=== PATIENT | male | born 1940 | race Caucasian/White ===

== ENCOUNTER 2018-07-30 07:46 | Day surgery (SDC) | payer MEDICARE ==
[~2018-07-30] VITALS: Ht 167.6 cm; Wt 87.1 kg
[~2018-07-30 07:46] MED LIST: ACETAMINOPHEN 325 MG TAB PO PRN; ATOR1TAB19 PO; BSS with VANC/TOB/EPI for EYE CASES IR ONE; CEFUROXIME 1MG/0.1ML INTRACAMERAL INJ As Ordered ONE; CYCLOPENTOLATE 2% OPHTH SOLN 2ML BTL OD ONE; HEALON DUET PRO(HEALON 10MG/ML 0.55ML & HEALON ENDOCOAT 30MG/ML 0.85ML) As Ordered ONE; LIDOCAINE 1% SDV 5 ML VIAL As Ordered ONE; LIDOCAINE 3.5 % 1ML OPHTH TOPICAL GEL OU ONE; MIDAZOLAM INJ 2 MG/2 ML VIAL (J2250) As Ordered ONE; OFLOXACIN 0.3 % (OCUFLOX) OPTH SOL 5ML OD ONE; OMEP20CA3 PO; PHENYLEPHRINE 2.5% OPHTH SOL 2ML OD ONE; PHENYLEPHRINE HCL 10 % OPHTH. SOL 5ML OD PRN; POVIDONE-IODINE 5% OPHTH PREP SOL 30ML As Ordered ONE; PROPARACAINE 0.5% OPHTH SOL 15ML OD PRN; TRIA2TA PO; TROPICAMIDE 1% OPHTH SOLN 2ML OD ONE; fentaNYL 100 MCG/2 ML INJECTION (J3010) As Ordered ONE
[2018-07-30] MEDS ORDERED: TRIMETHOBENZAMIDE 300 MG CAP PO PRN (10:15)
[2018-07-30] MEDS ORDERED: KETOROLAC 0.5% OPHTH SOLN OD ONE (10:15)
[2018-07-30] MEDS ORDERED: AcetaZOLAMIDE 500 MG ER CAP PO ONE (10:15)
[2018-07-30] MEDS ORDERED: HEALON DUET PRO(HEALON 10MG/ML 0.55ML & HEALON ENDOCOAT 30MG/ML 0.85ML) As Ordered ONE (10:27)
[2018-07-30 10:30] VITALS: BP 162/92
--- NOTE | 2018-07-30 15:33 | RO ---
DATE OF PROCEDURE: 07/30/2018 PREOPERATIVE DIAGNOSIS: Cataract right eye. POSTOPERATIVE DIAGNOSIS: Cataract right eye. PROCEDURE: PROCEDURE: Femtosecond laser and phacoemulsification of the intraocular lens with lens implantation along with endocyclophotocoagulation and placement of the I-Stent right eye. Intraocular lens power used was Model AU00T0, power 19.5 diopter. SURGEON: Ham Rollins MD APPAREL PATTERNMAKER: None. ANESTHESIA: Local IV standby. FINDINGS: Cataract of right eye. COMPLICATIONS: None. DESCRIPTION OF PROCEDURE: The patient was brought to the laser room and laid in supine position. After the adequate patient interface and intraocular pressure was reached, OCT images were reviewed and the laser was activated. Capsulorrhexis lens fragmentation primary secondary corneal incision along with arcuate corneal incision was done per plan. The patient was brought to the operating room and laid in supine position. The eye was prepped and draped in a sterile fashion for opthalmic surgery. A lid speculum was placed. Primary incision, secondary incision, and arcuate incisions were then opened per plan and EndoCoat was injected into the anterior chamber. Through the temporal clear corneal incision the capsulorrhexis was removed and after mild hydrodissection phacoemulsification was done in a divide and conquer method. After which the cortical material was aspirated using irrigation and aspiration cannula. Healon was then placed into the capsular bag followed by a check of the intraocular pressure. The pressure was adequate. Measurements were taken intraocular lens power AU00T0 19.5 diopter was chosen and placed in the capsular bag. Healon was then placed in the ciliary sulcus and endocyclophotocoagulation was done 280 degrees with the help of the EndoProbe as visualized on the video screen. Good results were noted by the shrinking of the ciliary processes. Additional viscoelastic was then placed in the anterior chamber. Patient's head was turned away from the surgeon and microscope towards the surgeon and with the hip of the goniolens under high magnification two I-Stents were placed. Nasally, supranasal and infranasal without any issues. Excess viscoelastic was then aspirated. Wound was hydrated and Intracameral moxifloxacin was given and lid speculum was removed, and patient was returned to the recovery room in stable condition.
== END 2018-07-30 10:35 | disposition home or self-care (01) ==
LOC: M SDC 07:46
PROVIDERS: ATTEND Ophthalmology
DX: H26.9 Unspecified cataract (principal); H40.9 Unspecified glaucoma; E78.2 Mixed hyperlipidemia; M17.10 Unilateral primary osteoarthritis, unspecified knee; R94.31 Abnormal electrocardiogram [ECG] [EKG]; K21.9 Gastro-esophageal reflux disease without esophagitis; F22 Delusional disorders; R35.1 Nocturia; Z79.899 Other long term (current) drug therapy
CPT/HCPCS: 66183; 66711; 66984; C1783; J2250; J3010; V2632

== ENCOUNTER 2018-08-05 09:06 | Day surgery (SDC) | payer MEDICARE ==
[~2018-08-05] VITALS: Ht 167.6 cm; Wt 85.3 kg
[~2018-08-05 09:06] MED LIST changes: -CYCLOPENTOLATE 2% OPHTH SOLN 2ML BTL OD ONE; +CYCLOPENTOLATE 2% OPHTH SOLN 2ML BTL OS ONE; -OFLOXACIN 0.3 % (OCUFLOX) OPTH SOL 5ML OD ONE; +OFLOXACIN 0.3 % (OCUFLOX) OPTH SOL 5ML OS ONE; -PHENYLEPHRINE 2.5% OPHTH SOL 2ML OD ONE; +PHENYLEPHRINE 2.5% OPHTH SOL 2ML OS ONE; -PHENYLEPHRINE HCL 10 % OPHTH. SOL 5ML OD PRN; +PHENYLEPHRINE HCL 10 % OPHTH. SOL 5ML OS PRN; -PROPARACAINE 0.5% OPHTH SOL 15ML OD PRN; +PROPARACAINE 0.5% OPHTH SOL 15ML OS PRN; -TROPICAMIDE 1% OPHTH SOLN 2ML OD ONE; +TROPICAMIDE 1% OPHTH SOLN 2ML OS ONE
[2018-08-05] MEDS ORDERED: HEALON DUET PRO(HEALON 10MG/ML 0.55ML & HEALON ENDOCOAT 30MG/ML 0.85ML) As Ordered ONE (11:34)
[2018-08-05] MEDS ORDERED: TRIMETHOBENZAMIDE 300 MG CAP PO PRN (13:00)
[2018-08-05] MEDS ORDERED: AcetaZOLAMIDE 500 MG ER CAP PO ONE (13:00)
[2018-08-05] MEDS ORDERED: KETOROLAC 0.5% OPHTH SOLN OS ONE (13:00)
[2018-08-05 13:20] VITALS: BP 170/93
--- NOTE | 2018-08-07 09:12 | RO ---
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 PROCEDURE: Femtosecond laser with phacoemulsification intraocular lens implantation of the help of Ora endocyclophotocoagulation and placement of the iStent. SURGEON: Ham Rollins MD TRUCK DISPATCHER: None. COMPLICATIONS: None. ANESTHESIA: Local IV standby. DESCRIPTION OF PROCEDURE: The patient was first brought to the laser room. After adequate patient interface and suction was obtained. OCT images were reviewed and the laser was activated. Capsulorrhexis lens fragmentation primary, secondary corneal and arcuate incisions were done per plan following which suction was released and patient was brought to the operating room. The eye was prepped and draped in a sterile fashion for opthalmic surgery and a lid speculum was placed. Primary and secondary coronal incision and arcuate incisions were opened per plan following which EndoCoat was injected into the anterior chamber. Through the temporal clear corneal incision, capsulorrhexis was removed and hydrodissection was done. Phacoemulsification was then done in a divide and conquer method within the capsular bag followed by aspiration of the cortical material. Healon was then placed in the capsule bag and the anterior chamber intraocular pressure was checked and was noted to be satisfactory. Multiple ora calculations were taken and intraocular lens of AU00T0 power 19.5 chosen. Following this, Healon was placed in the ciliary sulcus and ciliary processes were visualized on the video screen with the help of the EndoProbe. Endocyclophotocoagulation was done 280 degrees at 0.25 mV with good shrinking of the ciliary processes. Healon was then placed in the anterior chamber. Patient's head was turned away from the surgeon, microscope toward the surgeon under high magnification with the help of the Gonio lens, iStent was then placed nasally. Two iStents were placed in such a manner. Following this, excess viscoelastic was aspirated. Wound was hydrated, no leaks were noted. Intracameral moxifloxacin was given and patient was returned to the recovery room after removal of the lid speculum in stable condition.
== END 2018-08-05 13:40 | disposition home or self-care (01) ==
LOC: M SDC 09:06
PROVIDERS: ATTEND Ophthalmology
DX: H25.9 Unspecified age-related cataract (principal); H40.812 Glaucoma with increased episcleral venous pressure, left eye; E78.5 Hyperlipidemia, unspecified; K21.9 Gastro-esophageal reflux disease without esophagitis; Z79.899 Other long term (current) drug therapy
CPT/HCPCS: 66183; 66711; 66984; 92015; C1783; J2250; J3010; V2632